=== PATIENT | male | born 1975 | race Asian ===

== ENCOUNTER 2017-07-04 10:01 | Emergency (ER) | payer OTHER ==
[~2017-07-04] VITALS: Ht 182.9 cm; Wt 95.3 kg
[2017-07-04 10:01] VITALS: BP_SYST 153
--- NOTE | 2017-07-04 10:15 | NUR ---
Pt placed to ER bed 04. Pt here with c/o persistant cough for "years." Pt states that he coughs up small amounts of white plegm. Pt recently had a CXR done by PMD. Pt here for a referral to [facility]. Respirations even and non-labored, BBS clear.
--- NOTE | 2017-07-04 10:20 | NUR ---
Dr. Sears at bedside to assess pt.
[2017-07-04 11:00] VITALS: BP_SYST 144
--- NOTE | 2017-07-04 11:00 | NUR ---
Patient given written and verbal discharge instructions and verbalizes understanding. ER MD discussed with patient the results and treatment provided. Patient in stable condition. ID arm band removed. Rx of Robitussin DM given. Patient educated on pain management and to follow up with PMD. Pain Scale 2/10. Opportunity for questions provided and answered.
== END 2017-07-04 11:00 | disposition home or self-care (01) ==
LOC: SED 10:01
DX: R05 Cough (principal); I10 Essential (primary) hypertension
CPT/HCPCS: 99282